=== PATIENT | female | born 1975 | race Caucasian/White ===

== ENCOUNTER 2016-08-19 21:04 | Emergency (ER) | payer BC ==
[~2016-08-19] VITALS: Ht 177.8 cm; Wt 63.4 kg
[~2016-08-19 21:04] MED LIST: FLUT16SP13 EA NOSTRIL; MAGN400O4 PO; ONDA4TAB7 PO; OXYC1TAB11 PO; [UNRECOGNIZED DRUG - CODE] PO; [UNRECOGNIZED DRUG - CODE] PO; [UNRECOGNIZED DRUG - CODE] TP
[2016-08-19] MEDS ORDERED: ONDANSETRON 4 MG TABLET PO ONE (22:00)
[2016-08-19] MEDS ORDERED: MORPHINE SULFATE 4 MG SYRINGE IM ONE (22:00)
--- NOTE | 2016-08-19 22:20 | NUR ---
Imaging Patient out to Imaging
[2016-08-19 22:25] VITALS: Ht 177.8 cm; Wt 63.4 kg
--- NOTE | 2016-08-19 22:39 | NUR ---
Imaging Patient returns
[2016-08-19] MEDS ORDERED: HYDR-4246 PO (23:22)
[2016-08-19] MEDS ORDERED: ONDA4TAB7 PO (23:22)
--- NOTE | 2016-08-19 23:23 | ERPDOC ---
Departure Disposition Decision Date: August 19, 2016 Disposition Decision Time: 23:20 Disposition: 01 DISCHARGED HOME, SELF-CARE Impression Impression Impression: Primary Impression: Contusion Encounter type: initial encounter Contusion area: forearm Laterality: left Qualified Codes: S50.12XA - Contusion of left forearm, initial encounter Additional Impression: Closed head injury Encounter type: initial encounter Qualified Codes: S09.90XA - Unspecified injury of head, initial encounter Severity: Moderate Condition: Improved Seen By: Physician only Referrals: RORO CEJA (Family) 2 Days Patient Instructions: Contusion in Adults (DC), Head Injury (ED) Problems/Meds/Labs Reviewed?: Yes Medications reviewed and manag: Yes Follow up care ordered?: Yes Mental Status: Alert, Oriented Scripts Ondansetron (Zofran Odt) 4 Mg Tab.rapdis 4 MG PO Q4HR Y for NAUSEA &/OR VOMITING for 3 Days, #18 TAB 0 Refills Prov: HAYDEN COOK DO 08/19/16 Hydrocodone/Acetaminophen ([place] 5-325 Tablet) 5-325 Tablet 1 TAB PO Q4HR Y for PAIN for 3 Days, #18 TAB 0 Refills Prov: HAYDEN COOK DO 08/19/16 HPI - General Medical General Chief Complaint: Fall Stated Complaint: DIZZY,NASEAU, POSS BROKEN LT HAND Time Seen by Provider: 21:27 Source: patient, family Exam Limitations: no limitations HPI - General Medical Initial Comments 40-year-old female presents to emergency department with a chief complaint of an injury to her left forearm and a potential closed head injury. Patient states she was in a swing which was secured to a tree when the tree branch broke and she fell to the ground striking her head and having the tree branch land on her left forearm. Patient denies loss of consciousness or neck pain. No other complaints or associated symptoms. Patient notes a moderate dull aching discomfort in her left forearm without radiation. She notes the pain increases with movement and improves with positioning and rest. She denies any other complaints or associated symptoms. Symptoms have been persistent in nature since onset. Occurred At: home Onset: Constant Allergies: Coded Allergies: Penicillins (Verified Allergy, Unknown, 08/19/16) bupropion HCl (Verified Allergy, Unknown, 08/19/16) PER H&P DATED 12-08-12 kiwi (Verified Allergy, Unknown, 08/19/16) latex (Verified Allergy, Unknown, RASH/WELT, 08/19/16) codeine (Verified Adverse Reaction, Unknown, N/V, 08/19/16) Uncoded Allergies: TAPE (Allergy, Unknown, RASH, 12/18/12) Past History Past Medical History Pt denies signifigant PMH Female: para Surgical History Reproductive/: D&C Joint: other (LUE) Family History Family History: Negative Vaccines Hx Influenza Vaccination: Yes (fall 2013) Hx Pneumococcal Vaccination: No Social History Smoking Status: Never smoker Substance Use Type: does not use Alcohol Intake: none Review of Systems Constitutional Constitutional: DENIES: chills, fever Eyes General: DENIES: erythema, exudate Lids/Accessories: DENIES: erythema, swelling Vision: DENIES: acuity, blurring ENMT Ears: DENIES: drainage, erythema Hearing: DENIES: hearing loss Balance: DENIES: ataxia, falling to one side Sinuses: DENIES: congestion, pain Nose: DENIES: nosebleeds, pain Mouth/Throat: DENIES: painful swallowing, sore throat Teeth: DENIES: pain Jaw: DENIES: pain Cardiovascular Cardiac: DENIES: chest pain, dyspnea on exertion Rhythm/Rate: DENIES: irregular beat, palpitations Vascular: DENIES: pedal edema, unilateral swelling Pulmonary Respiratory: DENIES: cough, dyspnea, pleuritic chest pain, sputum GI Upper Abdomen: DENIES: nausea, pain, vomiting Lower Abdomen: DENIES: diarrhea, pain General: DENIES: dysuria, frequency Musculoskeletal General: pain, tenderness, DENIES: joint pain Integumentary Skin: DENIES: itching, rash Neurological General: DENIES: headache, numbness, weakness Psychiatric Psychiatric: DENIES: emotional instability, suicidal ideation/attempt Endocrine Endocrine: DENIES: polydipsia, polyphagia Hematologic/Lymphatic Hematologic/Lymphatic: DENIES: frequent nosebleeds, lymphadenopathy Allergic/Immunological Allergic/Immunoligical: DENIES: allergic reactions, hives Physical Exam General General Nourishment: well nourished, well developed, appears stated age, no acute distress, adult General Body Habitus: well groomed Vitals and Pain First Documented Vital Signs Date Time Temp Pulse Resp B/P Pulse Ox O2 Delivery O2 Flow Rate FiO2 08/19/16 21:54 16 08/19/16 22:25 99.1 72 130/75 98 Room Air Weight: Kilograms: 63.400 Height (feet): 5 Height (inches): 10.00 Triage Pain Scale: RN VS reviewed by Provider: Yes Normal Exams: Head: Normocephalic w/o trauma Eyes: Pupils are PERRLA w/ EOMI, No scleral icterus, irritation, or foreign bodies noted ENMT: No facial trauma, nasal exudates, pharyngeal erythema, or exudates are noted Dental: No fractured, loose, or missing teeth noted Neck: Full range of motion, without adenopathy, JVD, bruits or thyromegaly Chest/Resp: Clear all back, with good airflow, and symmetry bilaterally CV: Regular rate and rhythm, without murmur or gallop, Pulses 2+ all extremities, capillary refill, <2 seconds all ext., no pedal edema noted Abdomen: Bowel sounds positive, soft, non-tender, non-distended, no hepatosplenomegaly, masses or bruits noted Lymphatic: No lymphadenopathy, or lymphedema noted Musculoskeletal: No tenderness, or deformity noted, good range of motion, all extremities Integumentary: No rashes, hives, or bruising noted, hair and nails, without abnormality Neurologic: Patient is alert, and oriented, cranial nerves, motor/sensory/ cerebellar, exams w/o gross deficits, to observation Psychiatric: Patient exhibits, appropriate attention, emotion and affect Neck (brief) Neck: FOUND: trachea midline, NOT FOUND: tenderness Musculoskeletal (brief) Comments LUE - Full range of motion. Positive ecchymosis noted over the mid left forearm on the dorsal surface. Skin is intact. Pulses intact. Sensation intact. Capillary refill less than 2. No other tenderness in the left upper extremity. No snuffbox tenderness. All other extremities are unremarkable. Differential Diagnoses Considering: Other (Sprain / Strain / Fracture / contusion) Procedures Splinting Procedure Splint : Pre-placement NV: FOUND: cap refill < 3 sec, good movement, good sensation Hand-Made Type: orthoglass Splint: sugar-tong Post-placement NV: FOUND: cap refill < 3 sec, good movement, good sensation Applied by: MD/DO Progress Results/Orders Orders Procedure Category Date Status Time Ct Head W/O Contrast CT 08/19/16 Taken 21:37 Ct Cervical Spine W/O CT 08/19/16 Taken Contrast 21:37 Wrist Left 3-4 Views RAD 08/19/16 Taken 21:37 Radius/Ulna Left 2 RAD 08/19/16 Taken View 21:37 Morphine Sulfate PHA 08/19/16 Complete (Morphine) 22:00 Ondansetron (Zofran) PHA 08/19/16 Complete 22:00 LAB 08/19/16 Complete Qualitative, Urine 22:01 Hydrocodone/Apap PHA 08/19/16 Complete 5/ [place]ack ([place] 5 23:30 Lab Results Laboratory Tests Test 08/19/16 22:04 Urine Test Negative Medications Current ED Medications Morphine Sulfate (Morphine) 4 mg O ONCE IM Last administered on 08/19/16 21:54 ; Start 08/19/16 at 22:00; Stop 08/19/16 at 22:01; Status DC Ondansetron HCl (Zofran) 4 mg O ONCE PO Last administered on 08/19/16 21:55; Start 08/19/16 at 22:00; Stop 08/19/16 at 22:01; Status DC Acetaminophen/ Hydrocodone Bitart ([place] 5 (PrePack)) 1 pack O ONCE SENT HOME Last administered on 08/19/16 23:30; Start 08/19/16 at 23:30; Stop 08/19/16 at 23: 31; Status DC Progress Progress Patient was given analgesic pain medication the emergency department with improvement of symptoms. Patient is discharged home in improved condition. She is to follow up as instructed. Patient was placed in a sugar tong splint with good alignment to the left upper extremity by myself. Patient was distal neurovascular intact post-application of splint/sling. Patient is discharged home with prescriptions for Zofran and [place]. She is in agreement with the current plan of management. She is to follow up as instructed. She is to return to the emergency Department if her condition worsens or changes in any manner. Xray Xray : Xray: Radius/Ulna L Interpretation: Normal, Faxed Report (L wrist: Negative. ) CT CT : CT: Head no contrast Interpretation: Normal (Ct cervical spine: Negative. ), Faxed Report HAYDEN COOK DO August 19, 2016 23:23
[2016-08-19] MEDS ORDERED: HYDROCODONE/APAP 5/325 (PrePack) SENT HOME ONE (23:30)
[2016-08-19 23:35] VITALS: BP 125/70; PULSE 69; RESP 16; TEMP 98.8; O2SAT 97
--- NOTE | 2016-08-20 08:20 | DI ---
Indication: ITS.REASON: pain PROCEDURE: WRIST LEFT 3-4 VIEWS: Encounter: Initial Comparison: 09/15/2014 Findings: There is no acute fracture, dislocation or malalignment identified. There is mild widening of the scapholunate distance which measures 4.4 mm. This could suggest a scapholunate ligament tear. There is no definite subluxation. The patient is had a posterior plate and screw ORIF of the distal ulna. Impression: Mild widening of the scapholunate distance which may suggest some element of scapholunate ligament injury. Healed remote distal ulnar fracture. .
--- NOTE | 2016-08-20 08:22 | DI ---
Indication: ITS.REASON: pain, injury PROCEDURE: RADIUS/ULNA LEFT 2 VIEW: Encounter: Initial Comparison: None Findings: There is no acute fracture, dislocation or malalignment identified. No definite elbow effusion. There is a dorsal plate on the distal ulna with a healed distal ulnar fracture. There is also negative ulnar variance. No definite sclerosis of the lunate. Impression: No acute osseous abnormality. .
--- NOTE | 2016-08-20 08:24 | DI ---
Indication: ITS.REASON: pain, injury PROCEDURE: CT HEAD W/O CONTRAST: Encounter: Initial Comparison: None Technique: Axial CT images through the head were performed without contrast. Iterative Reconstruction dose reducing technique was utilized. FINDINGS: The ventricles are of normal size, shape, and configuration for the patient's age. There is no evidence of acute intracranial hemorrhage, midline displacement, or mass effect. The CT attenuation of the brain parenchyma is normal within the cerebellum, brain stem, and cerebral hemispheres. The tympanic cavities and mastoid air cells are free of appreciable disease. There are no definite fractures of the skull base, calvarium, or visualized portion of the midface. IMPRESSION: No CT evidence of acute traumatic intracranial injury. No evidence for acute cortical infarct. No evidence for intracranial hemorrhage. No mass lesion, mass effect, or midline shift. .
--- NOTE | 2016-08-20 08:26 | DI ---
Indication: ITS.REASON: pain, injury PROCEDURE: CT CERVICAL SPINE W/O CONTRAST: Encounter: Initial Comparison: None Technique: Axial CT images through the cervical spine were performed without contrast. Coronal and sagittal reformatted images were also obtained. Automated Exposure Control and Iterative Reconstruction dose reducing techniques were utilized. FINDINGS: The alignment of the cervical spine is normal. There are mild degenerative changes of degenerative disc disease, with uncovertebral joint spur hypertrophy, maximal at C6-7 with similar but lesser changes at C5-C6. There is no evidence of acute fracture or subluxation of the cervical spine. The facet joints are well aligned with preservation of the intervertebral disk and facet joints. The atlantoaxial articulation, dens, and upper cervical spine demonstrate no subluxation. There is no evidence of significant spinal stenosis, foraminal compromise, or significant disk herniation. The paraspinal soft tissues and spinal canal appear unremarkable. IMPRESSION: No acute traumatic abnormality of the cervical spine. .
== END 2016-08-19 23:35 | disposition home or self-care (01) ==
LOC: ED 21:04
DX: S50.12XA Contusion of left forearm, initial encounter (principal); S09.90XA Unspecified injury of head, initial encounter; W17.89XA Other fall from one level to another, initial encounter; W20.8XXA Other cause of strike by thrown, projected or falling object, initial encounter; Y93.89 Activity, other specified; Y92.007 Garden or yard of unspecified non-institutional (private) residence as the place of occurrence of the external cause; Y99.8 Other external cause status
CPT/HCPCS: 81025